=== PATIENT | male | born 1965 | race Caucasian/White ===

== ENCOUNTER → 2020-01-27 | Outpatient (CLI) | payer OTHER ==
--- NOTE | 2020-01-27 10:10 | RAD ---
Clinical indications: Left arm swelling and pain for one month off-and-on. Findings: Duplex sonography (including vazquez scale evaluation and color flow and waveform spectral analysis) of the inferior aspect of the left internal jugular vein was performed. Duplex sonography (including vazquez scale evaluation and color flow and waveform spectral analysis) of the left subclavian vein as far as it could be visualized prior to it's descent underneath the medial aspect of the clavicle was performed. Duplex sonography (including vazquez scale evaluation and color flow and waveform spectral analysis) of the left axillary, brachial, basilic, cephalic, ulnar and radial veins was performed. Normal compressibility and augmentation of color Doppler flow after forearm compression is seen. Color-flow completely fills the lumen of these veins. Therefore, there are no sonographic findings of deep venous thrombosis within these veins. There is a reactive lymph node of the upper left arm measuring 10 mm. Impression: There are no sonographic findings of deep venous thrombosis within the veins discussed above of the left upper extremity. Electronically signed by: Francisco Mims MD (01/27/2020 10:07 AM) [id number]
== END ==
LOC: US 09:23 → EDBD 09:23
PROVIDERS: ATTEND Family Medicine
DX: M79.89 Other specified soft tissue disorders (principal)
CPT/HCPCS: 93971